=== PATIENT | female | born 1945 | race Caucasian/White ===

== ENCOUNTER 2017-01-29 11:44 | Emergency (ER) | payer MEDICARE, BC ==
--- NOTE | ~2017-01-29 | CR94 ---
[facility] A Service of [facility] RADIOLOGY TEXT RESULTS PATIENT: BRENDEN ACKERMAN LOCATION: [facility] : 45 UNIT #: [id number] AGE: [address]: Teri Gamez APRN SEX: F ORDER DR: [id number] [place] [id number] [facility]. [place], [place] [address] [id number] E MR#: [id number] Acc #: [id number] NAME: BRENDEN ACKERMAN. : 1945 SEX: F STUDY DATE/TIME: 01/29/2017 12:22 UNIT: [facility] ROOM: STUDY DESCRIPTION: CR Elbow Min 3 Views Rt Attending Physician: Teri Gamez A.P.R.N. Ordering Physician: Ed Arun Rocha M.D. Primary Care Physician: Iris Mims M.D. MEDICAL IMAGING REPORT This report is preliminary unless electronic signature is present EXAM Three views of the right elbow. DATE 01/29/2017 HISTORY 71-year-old female with right elbow pain today after falling. COMPARISON None FINDINGS No fracture. No dislocation. There is mild spurring of the radial head. No joint effusion. No retained radiopaque foreign body. IMPRESSION Mild degenerative spurring of the radial head. No acute abnormality of the right elbow. Dictated by... Delfina Cruz M.D. THIS IS AN ELECTRONICALLY VERIFIED REPORT Delfina Cruz M.D. at 01/30/2017 8:36 AM [facility]/deepak TD: 01/29/2017 14:35 JOB #: [id number] MEDICAL IMAGING REPORT [facility] A Service [facility] RADIOLOGY TEXT RESULTS PATIENT: BRENDEN ACKERMAN LOCATION: [facility] : 45 UNIT #: [id number] AGE: [address]: Teri Gamez APRN SEX: F ORDER DR: Page 1 of 1 COPY
--- NOTE | ~2017-01-29 | CT71 ---
[facility] A Service of [facility] RADIOLOGY TEXT RESULTS PATIENT: BRENDEN ACKERMAN LOCATION: [facility] : 45 UNIT #: [id number] AGE: [address]: Teri Gamez APRN SEX: F ORDER DR: [id number] [facility] [address] [place], [place] [address] [id number] E MR#: [id number] Acc #: [id number] NAME: BRENDEN ACKERMAN. : 1945 SEX: F STUDY DATE/TIME: 01/29/2017 12:25 UNIT: [facility] ROOM: STUDY DESCRIPTION: CT Head Wo Contrast Attending Physician: Teri Gamez A.P.R.N. Ordering Physician: David Rocha M.D. Primary Care Physician: Iris Mims M.D. MEDICAL IMAGING REPORT This report is preliminary unless electronic signature is present EXAM CT head without contrast DATE 01/29/2017 HISTORY 71-year-old female who fell and hit her head with right-side head pain since this morning. Hypertension. History of breast cancer. COMPARISON Noncontrast CT head 03/14/2014 FINDINGS No acute displaced calvarial fracture is identified. Major paranasal sinuses and mastoid air cells are clear. Hypodensities within the deep white matter of the brain are nonspecific but favored to represent changes of chronic microvascular disease and there is no CT evidence of acute or evolving infarct. Mild generalized atrophy is present with compensatory prominence of ventricles and extraaxial spaces. No acute intracranial hemorrhage, mass lesion, mass effect or midline shift is seen. IMPRESSION 1. No acute intracranial findings. 2. Mild generalized atrophy and [id number] chronic microvascular disease changes. Dictated by... Delfina Cruz M.D. THIS IS AN ELECTRONICALLY VERIFIED REPORT Delfina Cruz M.D. at 01/30/2017 8:36 AM H/to [facility] A Service of [facility] RADIOLOGY TEXT RESULTS PATIENT: BRENDEN ACKERMAN LOCATION: [facility] : 45 UNIT #: [id number] AGE: [address]: Teri Gamez APRN SEX: F ORDER DR: TD: 01/29/2017 15:27 JOB #: [id number] MEDICAL IMAGING REPORT Page 1 of 1 COPY
[~2017-01-29 11:44] MED LIST: AMITRIPTYLINE100 MG PO; AMITRYPTYLINE PO; ASPIRIN81 MG PO; BUPROPION HCL200 MG PO; CALAN SR PO; CIPRO PO; CLARINEX5 MG PO; CLONIDINE HCL0.1 MG PO; CLONIDINE PO; DIOVAN HCT 160/1 TAB PO; DIOVAN HCT 3201 EAC1 PO; ETODOLAC200 MG PO; FUROSEMIDE40 MG PO; HYDROXYZINE HCL10 MG PO; KCL PO; KEFLEX PO; KLOR-CON PO; LASIX PO; LEVOTHYROXINE75 MC1 PO; LIPITOR20 MG PO; LODINE PO; LOMOTIL TABLET1 TAB; LOMOTIL TABLET1 TAB PO; MELOXICAM15 MG PO; MULTI-DAY VITAM1 TAB PO; MULTI-VITAMIN1 TAB PO; NEXIUM PO; NORCO 5/325 TAB1 TAB PO; NORFLEX100 MG PO; PHENERGAN PO; PRILOSEC40 MG PO; SYNTHROID PO; VALSARTAN-HCTZ1 EAC3 PO; VERAPAMIL ER200 MG PO; VERAPAMIL ER240 MG PO; VICODIN 5/500 T1 TAB PO; VITAMIN D 4001 UDTAB PO; VITAMIN D1000 UNI1 PO; WELLBUTRIN PO; WELLBUTRIN SR200 MG PO; ZOFRAN ODT4 MG PO
== END 2017-01-29 13:00 | disposition home or self-care (01) ==
LOC: CED 11:44 → CFTX 11:44
DX: S00.83XA Contusion of other part of head, initial encounter (principal); S50.01XA Contusion of right elbow, initial encounter; I10 Essential (primary) hypertension; Z88.2 Allergy status to sulfonamides; Z88.5 Allergy status to narcotic agent; Z91.041 Radiographic dye allergy status; W01.0XXA Fall on same level from slipping, tripping and stumbling without subsequent striking against object, initial encounter; Y92.239 Unspecified place in hospital as the place of occurrence of the external cause
CPT/HCPCS: 70450; 73080; 90471; 90715; 99284

== ENCOUNTER 2017-02-06 10:55 | Emergency (ER) | payer MEDICARE, BC ==
--- NOTE | ~2017-02-06 | CT52 ---
[facility] A Service of [facility] RADIOLOGY TEXT RESULTS PATIENT: BRENDEN ACKERMAN LOCATION: [facility] : 45 UNIT #: [id number] AGE: [address]: Venu Duran MD SEX: F ORDER DR: [id number] [facility] [address] [place], [place] [address] [id number] E MR#: [id number] Acc #: [id number] NAME: BRENDEN ACKERMAN : 1945 SEX: F STUDY DATE/TIME: 02/06/2017 12:32 UNIT: [facility] ROOM: STUDY DESCRIPTION: CT Cervical Spine Wo Cont Attending Physician: Venu Duran M.D. Ordering Physician: Venu Duran M.D. Primary Care Physician: Iris Mims M.D. MEDICAL IMAGING REPORT This report is preliminary unless electronic signature is present EXAM Cervical spine CT, 02/06. INDICATION Fell this morning in the shower. Neck pain. TECHNIQUE Axial images were obtained through the cervical spine without contrast. Multiplanar reformats were obtained. This CT exam was performed with one or more of the following radiation dose reduction techniques: automatic exposure control, adjustment of mA and/or kV according to patient size, and iterative reconstruction. COMPARISON No comparison CT. FINDINGS No acute fractures are identified. There is subtle grade 1 anterolisthesis of C4 on C5. Alignment is otherwise normal. At C2-3, there is bilateral facet arthropathy. At C3-4, there is hypertrophic left side facet arthropathy. There is uncovertebral spurring on the left as well. These combine to cause left side foraminal stenosis. At C4-5, there is left greater than right facet arthropathy. Mild broad-based posterior disc osteophyte complex is seen. There is bilateral neural foraminal narrowing but no central stenosis. At C5-6, there is bilateral facet arthropathy. There is broad-based disc osteophyte complex slightly eccentric to the right. There is right [facility] A Service [facility] RADIOLOGY TEXT RESULTS PATIENT: BRENDEN ACKERMAN LOCATION: [facility] : 45 UNIT #: [id number] AGE: [address]: Venu Duran MD SEX: F ORDER DR: greater than left foraminal narrowing. At C6-7, there is a broad-based disc osteophyte complex with bilateral neural foraminal stenosis. Mild central stenosis present as well. At C7-T1, the disc is grossly normal. IMPRESSION Multilevel degenerative disease. No acute fractures. Dictated by... Camilo Enciso Jr., M.D. THIS IS AN ELECTRONICALLY VERIFIED REPORT Camilo Enciso Jr., M.D. at 02/06/2017 5:11 PM LAST/deepak TD: 02/06/2017 16:57 JOB #: [id number] MEDICAL IMAGING REPORT Page 1 of 1 COPY
--- NOTE | ~2017-02-06 | EKG ---
PATIENT: BRENDEN ACKERMAN UNIT #: [id number] Ventricular Rate: 72 BPM Atrial Rate: 72 BPM QRS Duration: 156 ms Q-T Interval: 460 ms QTC Calculation(Bezet): 503 ms Calculated R [place]: -17 degrees Calculated T [place]: -6 degrees Diagnosis Line: Possible Normal sinus rhythm with 1st degree A-V Diagnosis Line: block Diagnosis Line: Right bundle branch block Diagnosis Line: Minimal voltage criteria for LVH, may be normal Diagnosis Line: variant Diagnosis Line: Possible Lateral infarct , age undetermined Diagnosis Line: Abnormal ECG Diagnosis Line: When compared with ECG of 25-JAN-2014 10:18, Diagnosis Line: rhythm may be junctional or sinus with marked P-R Diagnosis Line: prolongation Diagnosis Line: Confirmed by YING HARMON MD ([id number]) on 02/06/2017 Diagnosis Line: 8:41:58 PM INTERPRETING MD: EDEN LEE
--- NOTE | ~2017-02-06 | CT71 ---
[facility] A Service of [facility] & [facility] RADIOLOGY TEXT RESULTS PATIENT: BRENDEN ACKERMAN LOCATION: [facility] : 45 UNIT #: [id number] AGE: [address]: Venu Duran MD SEX: F ORDER DR: [id number] [facility] [address] [place], [place] [address] [id number] E MR#: [id number] Acc #: [id number] NAME: BRENDEN ACKERMAN : 1945 SEX: F STUDY DATE/TIME: 02/06/2017 12:28 UNIT: [facility] ROOM: STUDY DESCRIPTION: CT Head Wo Contrast Attending Physician: Venu Duran M.D. Ordering Physician: Venu Duran M.D. Primary Care Physician: Iris Mims M.D. MEDICAL IMAGING REPORT This report is preliminary unless electronic signature is present EXAM CT head 02/06/2017 HISTORY Fell today in the shower. Laceration back of head, neck and back pain. Abrasions forehead and nose. TECHNIQUE CT head performed skull base through vertex without intravenous contrast. This CT exam was performed with one or more of the following radiation dose reduction techniques: automatic exposure control, adjustment of mA and/or kV according to patient size, and iterative reconstruction. COMPARISON STUDIES 01/29/2017. FINDINGS Brainstem unremarkable. Cerebellum and cerebral hemispheres show normal noel matter-white matter differentiation. No hemorrhage. No evidence of acute cortical ischemia. Periventricular and deep white matter tract hypodensities most consistent with sequelae of chronic microvascular ischemia. Midline structures nondisplaced. Ventricles, cisterns and sulci show stable mild generalized enlargement consistent with generalized atrophy. No intra- or extraaxial mass effect or abnormal intracranial fluid collection. Intraorbital soft tissues unremarkable. No fracture. The visualized paranasal sinuses and mastoid air cells are clear. Subcutaneous air posterior occipital/parietal scalp with associated soft tissue swelling and small hematoma measuring about 1.6 cm x 2 mm. This likely reflects the patient's stated laceration. The laceration itself is not clearly seen. There is no radiodense foreign body. [facility] A Service of [facility] & [facility] RADIOLOGY TEXT RESULTS PATIENT: BRENDEN ACKERMAN LOCATION: [facility] : 45 UNIT #: [id number] AGE: [address]: Venu Duran MD SEX: F ORDER DR: IMPRESSION 1. No acute abnormality seen in the brain. No change from 01/29/2017. Chronic changes include periventricular and deep white matter tract probable sequelae of chronic microvascular ischemia and mild generalized atrophy. 2. No fracture. 3. Subcutaneous air and small hematoma posterior midline occipital and parietal scalp. Likely reflecting the patient's stated laceration, though the laceration itself is not visualized. Correlate with exam. There is no radiodense foreign body seen. Dictated by... Ignacio Sommers M.D. THIS IS AN ELECTRONICALLY VERIFIED REPORT Ignacio Sommers M.D. at 02/07/2017 9:54 PM RAKAN/ezio TD: 02/06/2017 16:24 JOB #: [id number] MEDICAL IMAGING REPORT Page 1 of 1 COPY
[2017-02-06 11:49] LABS: BASOPHIL# 0.1 X10e3 (0-0.3); BASOPHIL% 0.6 % (0-2.5); DIFF IND YES; EOSINOPHIL# 0.4 X10e3 (0-0.7); EOSINOPHIL% 2.7 % (0.0-7.0); HEMATOCRIT 34.1 % (35.0-45.0); HEMOGLOBIN 10.6 gm/dL (12.0-16.0); LYMPHOCYTE# 1.6 X10e3 (1.0-3.5); LYMPHOCYTE% 9.5 % (17.0-45.0); MEAN CELL VOLUME 87.1 FL (83-96); MEAN PLATELET VOLUME 8.6 FL (6.5-11.5); MONOCYTE# 1.6 X10e3 (0-1.0); MONOCYTE% 9.5 % (3.0-12.0); NEUTROPHIL# 12.7 X10e3 (1.5-7.1); NEUTROPHIL% 77.7 % (40-75); PLATELET COUNT 309 X10e3 (140-420); RED BLOOD COUNT 3.92 X10e (3.90-5.30); RED CELL DISTRIBUTION WIDTH 15.1 % (11.0-15.5); WHITE BLOOD COUNT 16.4 X10e3 (4.0-10.5)
[2017-02-06 12:03] LABS: BUN/CREATININE RATIO 16.31; CREATININE SERUM 1.9 mg/dL (0.6-1.4); GLOM FILT RATE Estimated 26.1 mL/min (>60); POTASSIUM 3.4 mmol/L (3.5-5.1)
[2017-02-06 12:20] LABS: ANISOCYTOSIS SL; PLATELET ESTIMATE NORMAL (NORMAL)
[2017-02-06 13:00] LABS: POC - CKMB 2.5 ng/mL (0.0-7.9); POC - TROPONIN <0.05 ng/mL (<=0.05)
[2017-02-06] MEDS ORDERED: ALPRAZOLAM0.25 MG PO ×2 (13:55→14:24)
[2017-02-06] MEDS ORDERED: AMITRIPTYLINE100 MG PO ×2 (13:56→13:57)
[2017-02-06] MEDS ORDERED: LIPITOR20 MG PO ×2 (13:56→13:57)
[2017-02-06] MEDS ORDERED: PATIENT'S PHARMACY (13:57)
[2017-02-06] MEDS ORDERED: BUPROPION HCL200 M1 PO (13:57)
[2017-02-06] MEDS ORDERED: ARICEPT5 M2 PO (13:58)
[2017-02-06] MEDS ORDERED: NEXIUM PO (13:58)
[2017-02-06] MEDS ORDERED: CATAPRES0.1 MG PO (13:58)
[2017-02-06] MEDS ORDERED: FLUOXETINE HCL40 MG PO (13:59)
[2017-02-06] MEDS ORDERED: HYDRALAZINE HCL25 MG PO (13:59)
[2017-02-06] MEDS ORDERED: FUROSEMIDE40 MG PO (13:59)
[2017-02-06] MEDS ORDERED: FLONASE 0.05% N16 GM (13:59)
[2017-02-06] MEDS ORDERED: KCL PO (14:00)
[2017-02-06] MEDS ORDERED: LEVO-T100 MCG PO (14:00)
[2017-02-06] MEDS ORDERED: NIZORAL 2% CREA15 GM TOP (14:00)
[2017-02-06] MEDS ORDERED: LINZESS290 MCG PO (14:00)
[2017-02-06] MEDS ORDERED: MEMANTINE HCL10 MG PO (14:01)
[2017-02-06] MEDS ORDERED: ZOFRAN ODT4 M1 PO (14:01)
[2017-02-06] MEDS ORDERED: VALSARTAN-HCTZ1 EAC3 PO (14:01)
[2017-02-06] MEDS ORDERED: VERAPAMIL ER240 M1 PO (14:02)
[2017-02-06 14:19] LABS: URINE SOURCE CLEAN CATCH
[2017-02-06 14:23] LABS: URINE APPEARANCE CLEAR; URINE BILIRUBIN NEG (NEG); URINE BLOOD NEG (NEG); URINE COLOR YELLOW; URINE GLUCOSE NEG (NEG); URINE KETONE NEG (NEG); URINE LEUKOCYTE ESTERASE 2+ (NEG); URINE NITRATE NEG (NEG); URINE PROTEIN NEG (NEG); URINE SPECIFIC GRAVITY 1.014 (1.003-1.035); URINE UROBILINOGEN 0.2 MG/DL (NEG)
[2017-02-06] MEDS ORDERED: PROZAC40 MG PO (14:24)
[2017-02-06] MEDS ORDERED: NEURONTIN100 MG PO (14:24)
[2017-02-06] MEDS ORDERED: MOBIC PO (14:25)
[2017-02-06 14:26] LABS: URBCS1 AUWI 0-2 /[HPF] (0-2); URINE BACTERIA AUWI NEG (NEGATIVE); URINE SQUAMOUS EPITHELIAL CELL FEW /[HPF]
[2017-02-06] MEDS ORDERED: LORTAB 10-3251 EACH PO (14:26)
[2017-02-06 14:28] LABS: CULTURE INDICATED? YES
== END 2017-02-06 14:48 | disposition home or self-care (01) ==
LOC: CED 10:55
PROVIDERS: Emergency Medicine
DX: S01.01XA Laceration without foreign body of scalp, initial encounter (principal); N28.9 Disorder of kidney and ureter, unspecified; Z88.5 Allergy status to narcotic agent; Z88.2 Allergy status to sulfonamides; Z91.041 Radiographic dye allergy status; W18.30XA Fall on same level, unspecified, initial encounter; Y92.009 Unspecified place in unspecified non-institutional (private) residence as the place of occurrence of the external cause
CPT/HCPCS: 12002; 36415; 51701; 70450; 72125; 80048; 81003; 82553; 84484; 85025; 87086; 90715; 93005; 99284

== ENCOUNTER 2017-02-12 11:28 | Emergency (ER) | payer MEDICARE, BC ==
[~2017-02-12 11:28] MED LIST changes: +ALPRAZOLAM0.25 MG PO; +ARICEPT5 M2 PO; +BUPROPION HCL200 M1 PO; +CATAPRES0.1 MG PO; +FLONASE 0.05% N16 GM; +FLUOXETINE HCL40 MG PO; +HYDRALAZINE HCL25 MG PO; +LEVO-T100 MCG PO; +LINZESS290 MCG PO; +LORTAB 10-3251 EACH PO; +MEMANTINE HCL10 MG PO; +MOBIC PO; +NEURONTIN100 MG PO; +NIZORAL 2% CREA15 GM TOP; +PATIENT'S PHARMACY; +PROZAC40 MG PO; +VERAPAMIL ER240 M1 PO; +ZOFRAN ODT4 M1 PO
== END 2017-02-12 11:55 | disposition home or self-care (01) ==
LOC: CFTX 11:28 → CED 11:28 → CFTX 11:55
DX: Z48.02 Encounter for removal of sutures (principal); F07.81 Postconcussional syndrome; I10 Essential (primary) hypertension; E11.9 Type 2 diabetes mellitus without complications; Z88.5 Allergy status to narcotic agent; Z88.2 Allergy status to sulfonamides; Z91.041 Radiographic dye allergy status; Z79.899 Other long term (current) drug therapy
CPT/HCPCS: 99282

== ENCOUNTER 2017-04-04 17:38 | Emergency (ER) | payer MEDICARE, BC ==
[~2017-04-04] VITALS: Ht 170.2 cm; Wt 128.8 kg
--- NOTE | ~2017-04-04 | CT4 ---
[facility] A Service of [facility] RADIOLOGY TEXT RESULTS PATIENT: BRENDEN ACKERMAN LOCATION: [facility] : 45 UNIT #: [id number] AGE: [address]: Jj Meneses MD SEX: F ORDER DR: [id number] [facility] [address] [place], [place] [address] [id number] E MR#: [id number] Acc #: [id number] NAME: BRENDEN ACKERMAN : 1945 SEX: F STUDY DATE/TIME: 04/04/2017 20:21 UNIT: [facility] ROOM: STUDY DESCRIPTION: CT Abd and Pelv Wo Cont Attending Physician: Jj Meneses M.D. Ordering Physician: Jj Meneses M.D. Primary Care Physician: Iris Mims M.D. MEDICAL IMAGING REPORT This report is preliminary unless electronic signature is present EXAM Abdomen and pelvis CT without contrast HISTORY Constipation, abdominal pain. No bowel movement for the past 7 days. Abdominal pain started today. TECHNIQUE Axial images were obtained with oral contrast only and compared with 09/24/2016. This CT exam was performed with one or more of the following radiation dose reduction techniques: automatic control, adjustment of mA and/or kV according to patient size, and iterative reconstruction. FINDINGS The liver, spleen and pancreas are normal in size. The kidneys and adrenals are unremarkable and unchanged from the previous exam. Oral contrast is in the small bowel, almost to the cecum. There is no evidence of small bowel obstruction. The colon is markedly distended with stool. No inflammatory changes are seen. In the pelvis there is no evidence of adenopathy, mass or fluid collection. IMPRESSION Increased stool throughout the colon consistent with constipation. The small bowel pattern is normal with no evidence of obstruction. No acute or inflammatory changes are seen. Dictated by... Camilo Sun M.D. THIS IS AN ELECTRONICALLY VERIFIED REPORT Camilo Sun M.D. at 04/07/2017 7:13 AM OLINDAF/evelyn STS. [facility] A Service of [facility] & [facility] RADIOLOGY TEXT RESULTS PATIENT: BRENDEN ACKERMAN [id number] 45 UNIT #: [id number] AGE: [address]: Jj Meneses MD SEX: F ORDER DR: TD: 04/05/2017 23:31 JOB #: [id number] MEDICAL IMAGING REPORT Page 1 of 1 COPY
[2017-04-04 18:54] LABS: BASOPHIL# 0.2 X10e3 (0-0.3); BASOPHIL% 1.2 % (0-2.5); EOSINOPHIL# 0.2 X10e3 (0-0.7); HEMATOCRIT 34.9 % (35.0-45.0); HEMOGLOBIN 11.3 gm/dL (12.0-16.0); LYMPHOCYTE% 16.1 % (17.0-45.0); MEAN CELL VOLUME 86.3 FL (83-96); MEAN CORPUSCULAR HGB CONC 32.4 g/dL (30-36); MEAN PLATELET VOLUME 8.2 FL (6.5-11.5); MONOCYTE# 1.5 X10e3 (0-1.0); MONOCYTE% 11.8 % (3.0-12.0); NEUTROPHIL# 8.7 X10e3 (1.5-7.1); NEUTROPHIL% 68.9 % (40-75); PLATELET COUNT 314 X10e3 (140-420); RED BLOOD COUNT 4.04 X10e (3.90-5.30); RED CELL DISTRIBUTION WIDTH 15.2 % (11.0-15.5); WHITE BLOOD COUNT 12.6 X10e3 (4.0-10.5)
[2017-04-04 18:58] LABS: DIFF IND NO
[2017-04-04 19:22] LABS: ALBUMIN SERUM 4.1 g/dL (3.5-5.0); BILIRUBIN, DIRECT 0.1 mg/dL (0.0-0.2); BILIRUBIN,INDIRECT 0.5 mg/dL (0.0-0.9); BILIRUBIN,TOTAL 0.6 mg/dL (0.2-2.0); BUN/CREATININE RATIO 18.75; CALCIUM SERUM 9.2 mg/dL (8.4-10.2); CREATININE SERUM 1.6 mg/dL (0.6-1.4); GLOM FILT RATE Estimated 31.9 mL/min (>60); POTASSIUM 3.2 mmol/L (3.5-5.1); PROTEIN TOTAL SERUM 7.5 g/dL (6.0-8.3)
== END 2017-04-04 21:35 | disposition home or self-care (01) ==
LOC: CED 17:38
PROVIDERS: Emergency Medicine
DX: K59.00 Constipation, unspecified (principal); J44.9 Chronic obstructive pulmonary disease, unspecified; Z90.710 Acquired absence of both cervix and uterus; Z90.49 Acquired absence of other specified parts of digestive tract; Z90.89 Acquired absence of other organs; Z79.1 Long term (current) use of non-steroidal anti-inflammatories (NSAID); Z79.899 Other long term (current) drug therapy; Z88.2 Allergy status to sulfonamides; Z88.5 Allergy status to narcotic agent; Z91.041 Radiographic dye allergy status
CPT/HCPCS: 36415; 74176; 80048; 80076; 82150; 83690; 85025; 96360; 99284

== ENCOUNTER 2017-04-11 12:58 | Emergency (ER) | payer MEDICARE, BC ==
[~2017-04-11] VITALS: Ht 172.7 cm; Wt 127.9 kg
--- NOTE | ~2017-04-11 | HP ---
Unit #: [id number] #: [id number] Patient: BRENDEN ACKERMAN [id number] [address] [place], [place] [address] [id number] E MR#: [id number] NAME: BRENDEN ACKERMAN. ROOM: Age: 72 Sex: F Admission Date: 04/11/2017 : 1945 Attending Physician: Iam Ramirez M.D. Primary Care Physician: Iris Mims M.D. HISTORY AND PHYSICAL HISTORY OF PRESENT ILLNESS This is a 72-year-old white female who presented to the emergency room with altered mental status. She is a poor historian and is confused. Most information has been obtained from the who is at bedside. According to the , the patient has been seen by [facility] in the past. She has been "losing concentration" and having difficulty with walking recently. Physical therapy was there working with the patient for exercise and vital signs were obtained. She had a low blood pressure and low heart rate. She has fallen in the past because of weakness that is progressively worsened. They advised her to come to the emergency room for evaluation. On arrival, presenting electrocardiogram shows low heart rate of 42 beats per minute. Electrocardiogram shows AV dissociation consistent with third degree AV block. She was initially hypotensive with blood pressure 90/47 mmHg. She was treated with normal saline IV fluid bolus. She was also found to have acute kidney injury where creatinine was 3.2. According to the , she had no complaints of chest pain, palpitations, or dizziness. She had no cough or fever. No chills. She has risk factors for ischemic heart disease (hypertension, hyperlipidemia, and diabetes). According to records, the patient had an adenosine Cardiolite stress test in 2009 which was abnormal that was positive for ischemia in the anterolateral wall. According to the family, she had a cardiac catheterization. However, no intervention was done. There are no records available. PAST MEDICAL HISTORY 1. Hypertension. 2. Hyperlipidemia. 3. Diabetes mellitus type 2. 4. Cerebrovascular accident. 5. Hypothyroidism. 6. History of breast cancer, status post radiation and chemotherapy. 7. Obesity. 8. Poor exercise tolerance. 9. Nonsmoker. PAST SURGICAL HISTORY 1. Right knee surgery. 2. Hysterectomy. 3. Breast lumpectomy for cancer. 4. Cholecystectomy. 5. Appendectomy. SOCIAL HISTORY The patient is cared for by her daughters and . There is o history Unit #: [id number] #: [id number] Patient: BRENDEN ACKERMAN of alcohol or illicit drug use. FAMILY HISTORY Noncontributory. ALLERGIES IV contrast that causes rash, morphine, codeine, sulfa. HOME MEDICATIONS 1. Lipitor 20 mg daily. 2. Clonidine 0.1 mg b.i.d. 3. Aricept 5 mg daily. 4. Flonase 0.05% nasal spray two sprays each nostril daily. 5. Furosemide 40 mg b.i.d. 6. Hydralazine 25 mg b.i.d. 7. Ketoconazole 2% cream applied topically b.i.d. 8. Potassium chloride 20 mEq t.i.d. 9. Levothyroxine 100 mcg daily. 10. Namenda 10 mg b.i.d. 11. Zofran 4 mg q.8 hours p.r.n. 12. Valsartan/hydrochlorothiazide 320/25 mg daily. 13. Verapamil 240 mg b.i.d. 14. Xanax 0.25 mg b.i.d. p.r.n. 15. Prozac 80 mg daily. 16. Neurontin 300 mg t.i.d. 17. Lortab 10/325 one tablet t.i.d. 18. Desyrel 50/100 mg nightly. 19. Pepcid 20 mg daily. 20. VESIcare 10 mg daily. 21. Bupropion 200 mg t.i.d. REVIEW OF SYSTEMS Difficult to obtain because of the patient's confusion. PHYSICAL EXAMINATION VITAL SIGNS: Blood pressure 90/47, heart rate 42, temperature 98.2. GENERAL: This is a 72-year-old obese white female who is in no acute distress. NEUROLOGIC: She is awake, alert, and oriented. There are no focal weaknesses. NECK: Trachea is midline. No thyromegaly or lymphadenopathy. No jugular venous distention. HEART: S1, S2 heart sounds are normal. No murmurs. No rubs. No clicks. Regular rate and rhythm that is bradycardic. ABDOMEN: Soft, obese. Bowel sounds are present. EXTREMITIES: Without left edema. SKIN: Warm and dry. DIAGNOSTIC STUDIES LABORATORY: White count 10.7, hemoglobin 10.1, hematocrit 31, platelet count 219,000. Glucose 107, BUN 44, creatinine 3.2, potassium 4.4, sodium 131. AST 44, ALT 42, alkaline phosphatase 105. BNP 280. Lactic acid 1.8. Troponin less than 0.05 x2. IMAGING: Chest x-ray shows cardiomegaly but no active disease. CARDIOVASCULAR: Electrocardiogram shows third degree heart block with a rate of 42 beats per minute. There is questionable old inferior infarct. Unit #: [id number] #: [id number] Patient: BRENDEN ACKERMAN Right bundle branch block. IMPRESSION 1. Junctional rhythm with high-grade AV block. 2. Acute kidney injury. 3. Hypotension. 4. History of hypertension. 5. Hyperlipidemia. 6. Diabetes mellitus type 2. 7. Obesity. 8. History of falls. 9. Altered mental status, questionably secondary to dementia. PLAN 1. The patient's electrocardiogram shows third degree heart block. She is hypotensive. Will start the patient on dopamine drip for vasoactive support. 2. All blood pressure medications will be discontinued. 3. The patient requires permanent pacemaker. This has been discussed with Dr. Wood and he is agreeable. The patient needs to be transferred to [facility]. Temporary pacemaker may need to be placed. 4. Because of acute kidney injury, consult to nephrology will be done. Will discontinue ARB and diuretics. Dictated by Melissa Rascon M.D. AEP/gabby TD: 04/11/2017 17:11 JOB #: [id number] HISTORY AND PHYSICAL Page 1 of 1 X Adrian Hanna APRN HISTORY AND PHYSICAL
--- NOTE | ~2017-04-11 | EKG ---
PATIENT: BRENDEN ACKERMAN UNIT #: [id number] Ventricular Rate: 42 BPM Atrial Rate: 37 BPM QRS Duration: 162 ms Q-T Interval: 570 ms QTC Calculation(Bezet): 475 ms Calculated R [place]: -14 degrees Calculated T [place]: 3 degrees Diagnosis Line: Sinus rhythm with complete heart block Diagnosis Line: Right bundle branch block with repolarization Diagnosis Line: abnormality Diagnosis Line: Abnormal ECG Diagnosis Line: When compared with ECG of 06-FEB-2017 11:21, Diagnosis Line: Wide QRS rhythm has replaced Sinus rhythm Diagnosis Line: Vent. rate has decreased BY 30 BPM Diagnosis Line: Confirmed by EMGHANA KEATING MD ([id number]) on 04/14/2017 Diagnosis Line: 1:49:41 PM INTERPRETING MD: ZURI LEE
--- NOTE | ~2017-04-11 | CT71 ---
[facility] A Service of [facility] & [facility] RADIOLOGY TEXT RESULTS PATIENT: BRENDEN ACKERMAN LOCATION: [facility] : 45 UNIT #: [id number] AGE: [address]: Michael Ramirez MD SEX: F ORDER DR: [id number] [facility] [address] [place], [place] [address] [id number] E MR#: [id number] Acc #: [id number] NAME: BRENDEN ACKERMAN : 1945 SEX: F STUDY DATE/TIME: 04/11/2017 14:36 UNIT: [facility] ROOM: STUDY DESCRIPTION: CT Head Wo Contrast Attending Physician: Iam Ramirez M.D. Ordering Physician: Bj Adhikari M.D. Primary Care Physician: Irsi Mims M.D. MEDICAL IMAGING REPORT This report is preliminary unless electronic signature is present EXAM CT head without IV contrast COMPARISON February 06, 2017, January 29, 2017, and March 14, 2014. INDICATION 72-year-old female with confusion today. FINDINGS This CT examination was performed with one or more of the following radiation dose reduction techniques: automatic exposure control, adjustment of mA and/or kV according to patient size, and iterative reconstruction. Exam is mildly limited by motion. Mild chronic-appearing mucosal disease of the right maxillary sinus. Otherwise, visualized paranasal sinuses, mastoid air cells and middle ears are well-aerated. No acute fractures or suspicious osseous lesions. There are calcifications of the cavernous internal carotid arteries. Small amount of gas seen cavernous sinus bilaterally, likely due to IV placement. Similarly a small amount of gas is seen in the left desk pens assembler space likely secondary to the same etiology. There is grossly stable mild cerebral and cerebellar volume loss. No abnormal extraaxial fluid collection or mass effect. No acute intracranial hemorrhage. Confluent periventricular white matter hypoattenuation seen in both parietal and frontal lobes extending into the temporal lobes is grossly stable consistent with moderate to severe small vessel ischemic change. No convincing evidence of acute ischemia although evaluation is limited by motion. IMPRESSION 1. Small amount of gas seen within the cavernous sinus bilaterally as well as within the left desk pens assembler space, a finding which is commonly STS. [facility] A Service of [facility] & [facility] RADIOLOGY TEXT RESULTS PATIENT: BRENDEN ACKERMAN LOCATION: [facility] : 45 UNIT #: [id number] AGE: [address]: Michael Ramirez MD SEX: F ORDER DR: seen with IV placement, likely gas introduced by the IV into the venous system. 2. No definite acute intracranial abnormality. The exam is mildly limited by motion. There is grossly stable mild cerebral and cerebellar volume loss with grossly stable moderate to severe chronic small vessel ischemic change. 3. Mild chronic-appearing right maxillary sinus disease. Dictated by... Shon Lee M.D. THIS IS AN ELECTRONICALLY VERIFIED REPORT Shon Lee M.D. at 04/18/2017 7:51 AM MINOR/brennen TD: 04/12/2017 11:13 JOB #: [id number] MEDICAL IMAGING REPORT Page 1 of 1 COPY
--- NOTE | ~2017-04-11 | CR72 ---
[facility] A Service of [facility] & [facility] RADIOLOGY TEXT RESULTS PATIENT: BRENDEN ACKERMAN LOCATION: [facility] : 45 UNIT #: [id number] AGE: [address]: Michael Ramirez MD SEX: F ORDER DR: [id number] [facility] [address] [place], [place] [address] [id number] E MR#: [id number] Acc #: [id number] NAME: BRENDEN ACKERMAN : 1945 SEX: F STUDY DATE/TIME: 04/11/2017 13:40 UNIT: [facility] ROOM: STUDY DESCRIPTION: CR Chest Single View Portable Attending Physician: Michael Ramirez Ordering Physician: Ed Arun Rocha M.D. Primary Care Physician: Iris Mims M.D. MEDICAL IMAGING REPORT This report is preliminary unless electronic signature is present EXAM Portable chest INDICATIONS Shortness of breath today COMPARISON 01/26/2015 FINDINGS Cardiomegaly. No airspace consolidation. Atherosclerotic calcification of the aorta. Degenerative change of the left shoulder. IMPRESSION Cardiomegaly. Otherwise unremarkable. Dictated by... Driss Taylor M.D. THIS IS AN ELECTRONICALLY VERIFIED REPORT Driss Taylor M.D. at 04/15/2017 7:20 AM ARS/to TD: 04/11/2017 17:37 JOB #: [id number] MEDICAL IMAGING REPORT Page 1 of 1 COPY
[2017-04-11 13:45] LABS: BASOPHIL# 0.1 X10e3 (0-0.3); BASOPHIL% 0.6 % (0-2.5); EOSINOPHIL# 0.2 X10e3 (0-0.7); EOSINOPHIL% 2.3 % (0.0-7.0); HEMOGLOBIN 10.1 gm/dL (12.0-16.0); LYMPHOCYTE# 1.2 X10e3 (1.0-3.5); MEAN CELL VOLUME 87.6 FL (83-96); MEAN CORPUSCULAR HEMOGLOBIN 28.6 PG (28-34); MEAN CORPUSCULAR HGB CONC 32.6 g/dL (30-36); MEAN PLATELET VOLUME 8.8 FL (6.5-11.5); MONOCYTE# 1.5 X10e3 (0-1.0); MONOCYTE% 13.6 % (3.0-12.0); NEUTROPHIL# 7.7 X10e3 (1.5-7.1); NEUTROPHIL% 72.5 % (40-75); PLATELET COUNT 219 X10e3 (140-420); RED BLOOD COUNT 3.54 X10e (3.90-5.30); RED CELL DISTRIBUTION WIDTH 15.6 % (11.0-15.5); WHITE BLOOD COUNT 10.7 X10e3 (4.0-10.5)
[2017-04-11 13:47] LABS: DIFF IND NO
[2017-04-11] MEDS ORDERED: DESYREL50 MG PO (13:49)
[2017-04-11] MEDS ORDERED: PEPCID AC20 M2 PO (13:49)
[2017-04-11] MEDS ORDERED: AMOXICILLIN500 M1 PO (13:50)
[2017-04-11 13:55] LABS: POC - CKMB 12.3 ng/mL (0.0-7.9); POC - TROPONIN <0.05 ng/mL (<=0.05)
[2017-04-11 13:58] LABS: PARTIAL THROMBOPLASTIN TIME 21.8 SECONDS (23.5-31.3); PROTHROMBIN TIME (PATIENT) 10.7 SECONDS (10.0-11.7)
[2017-04-11 14:10] LABS: ALBUMIN SERUM 3.5 g/dL (3.5-5.0); BILIRUBIN, DIRECT 0.1 mg/dL (0.0-0.2); BILIRUBIN,INDIRECT 0.1 mg/dL (0.0-0.9); BILIRUBIN,TOTAL 0.2 mg/dL (0.2-2.0); BUN/CREATININE RATIO 13.75; CALCIUM SERUM 8.7 mg/dL (8.4-10.2); CREATININE SERUM 3.2 mg/dL (0.6-1.4); GLOM FILT RATE Estimated 13.8 mL/min (>60); POTASSIUM 4.4 mmol/L (3.5-5.1); PROTEIN TOTAL SERUM 6.8 g/dL (6.0-8.3)
[2017-04-11] MEDS ORDERED: VESICARE5 MG PO (14:17)
[2017-04-11 15:40] LABS: URINE APPEARANCE CLEAR; URINE BILIRUBIN NEG (NEG); URINE BLOOD NEG (NEG); URINE COLOR YELLOW; URINE GLUCOSE NEG (NEG); URINE KETONE NEG (NEG); URINE LEUKOCYTE ESTERASE NEG (NEG); URINE NITRATE NEG (NEG); URINE PROTEIN NEG (NEG); URINE SPECIFIC GRAVITY 1.015 (1.003-1.035); URINE UROBILINOGEN 0.2 MG/DL (NEG)
[2017-04-11 15:43] LABS: CULTURE INDICATED? NO
[2017-04-11 15:55] LABS: POC - TROPONIN <0.05 ng/mL (<=0.05)
== END 2017-04-11 19:01 | disposition short-term general hospital (02) ==
LOC: CED 12:58
PROVIDERS: Emergency Medicine
DX: I95.9 Hypotension, unspecified (principal); J44.9 Chronic obstructive pulmonary disease, unspecified; Z90.49 Acquired absence of other specified parts of digestive tract; Z91.041 Radiographic dye allergy status; Z88.2 Allergy status to sulfonamides; Z88.5 Allergy status to narcotic agent; Z79.899 Other long term (current) drug therapy; Z79.01 Long term (current) use of anticoagulants
CPT/HCPCS: 36415; 51702; 70450; 71010; 76000; 80048; 80076; 81003; 82553; 83605; 83880; 84484; 85025; 85610; 85730; 93005; 93306; 99291; J1265

== ENCOUNTER 2017-04-25 19:28 | Emergency (ER) | payer MEDICARE, BC ==
[~2017-04-25] VITALS: Ht 172.7 cm; Wt 121.1 kg
[~2017-04-25 19:28] MED LIST changes: +AMOXICILLIN500 M1 PO; +DESYREL50 MG PO; +PEPCID AC20 M2 PO; +VESICARE5 MG PO
[2017-04-25 20:55] LABS: BASOPHIL# 0.1 X10e3 (0-0.3); EOSINOPHIL# 0.5 X10e3 (0-0.7); EOSINOPHIL% 3.8 % (0.0-7.0); HEMATOCRIT 28.9 % (35.0-45.0); HEMOGLOBIN 9.2 gm/dL (12.0-16.0); LYMPHOCYTE# 1.7 X10e3 (1.0-3.5); LYMPHOCYTE% 12.8 % (17.0-45.0); MEAN CELL VOLUME 86.3 FL (83-96); MEAN CORPUSCULAR HEMOGLOBIN 27.5 PG (28-34); MEAN CORPUSCULAR HGB CONC 31.8 g/dL (30-36); MEAN PLATELET VOLUME 7.6 FL (6.5-11.5); MONOCYTE# 1.5 X10e3 (0-1.0); MONOCYTE% 11.3 % (3.0-12.0); NEUTROPHIL# 9.4 X10e3 (1.5-7.1); NEUTROPHIL% 71.1 % (40-75); PLATELET COUNT 336 X10e3 (140-420); RED BLOOD COUNT 3.35 X10e (3.90-5.30); WHITE BLOOD COUNT 13.3 X10e3 (4.0-10.5)
[2017-04-25 21:01] LABS: DIFF IND NO
[2017-04-25 21:19] LABS: CALCIUM SERUM 8.6 mg/dL (8.4-10.2); GLOM FILT RATE Estimated 56.3 mL/min (>60)
[2017-04-25 21:33] LABS: PARTIAL THROMBOPLASTIN TIME 25.7 SECONDS (23.5-31.3)
== END 2017-04-25 22:05 | disposition home or self-care (01) ==
LOC: CED 19:28
PROVIDERS: Emergency Medicine; Nurse Practitioner
DX: I80.9 Phlebitis and thrombophlebitis of unspecified site (principal); E11.9 Type 2 diabetes mellitus without complications; E78.5 Hyperlipidemia, unspecified; I10 Essential (primary) hypertension; Z86.73 Personal history of transient ischemic attack (TIA), and cerebral infarction without residual deficits; Z79.899 Other long term (current) drug therapy; Z88.2 Allergy status to sulfonamides; Z88.5 Allergy status to narcotic agent; Z91.041 Radiographic dye allergy status
CPT/HCPCS: 80048; 80202; 84443; 85025; 85610; 85730; 87040; 99284